=== PATIENT | male | born 1960 | race Caucasian/White ===

== ENCOUNTER → 2016-03-29 | Outpatient (CLI) | payer OTHER ==
[~2016-03-29] MED LIST: ACHD5005 PO; ALPR1TAB2 PO; CARI350T27 PO; CYCL10TA9 PO; OXYC-12 PO; OXYC-465 PO; OXYC1TAB12 PO; SULF-222 PO
--- OUTSIDE RECORDS SUMMARY | 2016-03-29 15:13 | XMS REPORT | Continuity of Care Document ---
Author Author [facility] Organization [facility] Address Unknown Phone Unavailable Care Team Providers Care Character Actress Name Role Phone BURDEN, JOSE Larkin MD PCP Insurance Providers Payer Name Policy Number Subscriber Name Relationship [employer] [id number] [address] Self / Same As Patient Advance Directives Directive Response Recorded Date/Time Advance Directives No 06/13/14 8:31am Health Care Power of Repair Department Manager No 06/13/14 8:31am Organ Donor Yes 06/13/14 8:31am Resuscitation Status Full Code 06/13/14 8:31am Problems No known problems or medical conditions. Medications Medication Dose Route Sig Days/Qty Instructions Order Date Discontinued Date Status Alprazolam 1 Mg PO THREE TIMES A DAY PRN ANXIETY 05/31/13 Active Oxycodone Hcl/Acetaminophen 1 Tab PO EVERY 4HRS PRN PAIN 05/31/13 Discontinued Cyclobenzaprine HCl (Flexeril) 1 Each PO BEDTIME PRN MUSCLE SPASMS 05/02/14 Discontinued Oxycodone Hcl/Acetaminophen 1-2 Each PO Q4-6H PRN For PAIN 40 Qty 06/0203/31/14 Discontinued Oxycodone Hcl/Acetaminophen 1 Tab PO THREE TIMES A DAY 03/31/14 Active Carisoprodol 350 Mg PO BEDTIME PRN MUSCLE SPASMS 05/02/14 Active Acetaminophen/Hydrocodone Bitart (Hydrocodone/APAP 5/325mg) 1-2 Tab PO EVERY 4HRS 40 Qty every 4-6 hours as needed 05/03/14 Active Trimethoprim/Sulfamethoxazole 1 Tab PO TWICE A DAY 06/13/14 Active Social History Social History Problem Response Recorded Date/Time Alcohol Use Denies Use 06/13/2014 8:31am Recreational Drug Use No 06/13/2014 8:31am Recent Foreign Travel No 05/31/2013 8:40pm Recent Infectious Disease Exposure No 06/13/2014 8:24am Hospitalization with Isolation Denies 06/02/2013 10:22pm Smoking Status Never a Smoker 06/13/2014 8:31am Query Response Start Date Stop Date Smoking Status Never a Smoker Hospital Discharge Instructions No hospital discharge instructions. Plan of Care No plan of care. Functional Status No functional status results. Allergies, Adverse Reactions, Alerts Allergen Type Severity Reaction Status Last Updated No Known Drug Allergies Active 05/31/13 Immunizations Name Given Type Tetanus Booster (TDap) Unknown Historical Vital Signs Acute Vital Signs Vital Response Date/Time Temperature (Fahrenheit) 99.5 degrees F (97.6 - 99.5) Temperature (Calculated Celsius) 37.99692 degrees C (36.4 - 37.5) Temperature Source Temporal Pulse Rate (adult) 91 bpm (60 - 90) Respiratory Rate 20 bpm (12 - 24) O2 Sat by Pulse Oximetry 98 % (88 - 100) Blood Pressure 145/109 mm Hg Pain Pain Intensity 9 Height (Feet) 5 feet Height (Inches) 7.00 inches Height (Calculated Centimeters) 170.580002 cm Weight (Pounds) 135 pounds Weight (Ounces) 0.0 oz Weight (Calculated Grams) 55242.971 gm Weight (Calculated Kilograms) 61.101698 kilograms Calculated BMI 21.09 Results Laboratory Results Test Name Result Units Flags Reference Collection Date/Time Result Date/ Time Comments White Blood Count 8.9 10^3/uL 4.3-11.0 06/13/2014 9:05am 06/13/2014 9: 16am Red Blood Count 4.30 10^6/uL L 4.35-5.85 06/13/2014 9:05am 06/13/2014 9: 16am Hemoglobin 12.1 G/DL L 13.3-17.7 06/13/2014 9:0506/13/2014 9:16am Hematocrit 36 % L 40-54 06/13/2014 9:0506/13/2014 9:16am Mean Corpuscular Volume 83 FL 80-99 06/13/2014 9:0506/13/2014 9: 16am Mean Corpuscular Hemoglobin 28 PG 25-34 06/13/2014 9:0506/13/2014 9: 16am Mean Corpuscular Hemoglobin Concent 34 G/DL 32-36 06/13/2014 9:05am 12/2014 9:16am Red Cell Distribution Width 15.5 % H 10.0-14.5 06/13/2014 9:052014 9:16am Platelet Count 350 10^3/uL 130-400 06/13/2014 9:05am 06/13/2014 9:16am Mean Platelet Volume 9.4 FL 7.4-10.4 06/13/2014 9:0506/13/2014 9: 16am Neutrophils (%) (Auto) 70 % 42-75 06/13/2014 9:0506/13/2014 9:16am Lymphocytes (%) (Auto) 20 % 12-44 06/13/2014 9:0506/13/2014 9:16am Monocytes (%) (Auto) 8 % 0-12 06/13/2014 9:0506/13/2014 9:16am Eosinophils (%) (Auto) 2 % 0-10 06/13/2014 9:0506/13/2014 9:16am Basophils (%) (Auto) 0 % 0-10 06/13/2014 9:0506/13/2014 9:16am Neutrophils # (Auto) 6.2 X 10^3 1.8-7.8 06/13/2014 9:0506/13/2014 9: 16am Lymphocytes # (Auto) 1.7 X 10^3 1.0-4.0 06/13/2014 9:0506/13/2014 9: 16am Monocytes # (Auto) 0.7 X 10^3 0.0-1.0 06/13/2014 9:0506/13/2014 9: 16am Eosinophils # (Auto) 0.2 10^3/uL 0.0-0.3 06/13/2014 9:05am 06/13/2014 9 :16am Basophils # (Auto) 0.0 10^3/uL 0.0-0.1 06/13/2014 9:0506/13/2014 9: 16am Erythrocyte Sedimentation Rate 115 MM/HR H 0-30 06/13/2014 9:052014 10:25am Sodium Level 139 MMOL/L 135-145 06/13/2014 9:0506/13/2014 9:33am Potassium Level 4.0 MMOL/L 3.6-5.0 06/13/2014 9:0506/13/2014 9:33am Chloride Level 106 MMOL/L 98-107 06/13/2014 9:0506/13/2014 9:33am Carbon Dioxide Level 21 MMOL/L 21-32 06/13/2014 9:0506/13/2014 9: 33am Blood Urea Nitrogen 15 MG/DL 7-18 06/13/2014 9:0506/13/2014 9:33am Creatinine 0.74 MG/DL 0.60-1.30 06/13/2014 9:0506/13/2014 9:33am BUN/Creatinine Ratio 20 06/13/2014 9:0506/13/2014 9:33am Estimat Glomerular Filtration Rate > 60 06/13/2014 9:052014 9:33am GFR INTERPRETIVE DATA UNITS FOR ESTIMATED GFR (eGFR): mL/min/1.73 M2 REFERENCE RANGE FOR ESTIMATED GFR (eGFR) eGFR NORMAL eGFR >60 MODERATELY DECREASED eGFR 30-59 SEVERLY DECREASED eGFR 15-29 KIDNEY FAILURE <15 (OR DIALYSIS) Glucose Level 105 MG/DL 70-105 06/13/2014 9:0506/13/2014 9:33am Calcium Level 9.1 MG/DL 8.5-10.1 06/13/2014 9:0506/13/2014 9:33am Total Bilirubin 0.2 MG/DL 0.1-1.0 06/13/2014 9:05am 06/13/2014 9:33am Alkaline Phosphatase 299 U/L H 40-136 06/13/2014 9:0506/13/2014 9: 33am Aspartate Amino Transf (AST/SGOT) 28 U/L 5-34 06/13/2014 9:05am 2014 9:33am Alanine Aminotransferase (ALT/SGPT) 49 U/L 0-55 06/13/2014 9:05am 06/13 9:33am Total Protein 7.6 G/DL 6.4-8.2 06/13/2014 9:05am 06/13/2014 9:33am Albumin 4.2 G/DL 3.2-4.5 06/13/2014 9:05am 06/13/2014 9:33am Procedures No known history of procedures. Encounters Encounter Location Date/Time Departed Emergency Room [facility] 06/13/14 8:21am Registered Recurring [facility] 06/12/14 8:30am Recent Diagnosis
--- NOTE | 2016-03-29 16:29 | Diagnostic Imaging Report ---
PROCEDURE: MRI lumbar spine. TECHNIQUE: Multiplanar, multisequence MRI of the lumbar spine was performed without contrast. INDICATION: Back pain. FINDINGS: There are no previous MRI examinations available for comparison. The previous plain film examination of the lumbar spine performed on 01/15/2013 did note pedicle screws in place on the right at L4, L5, and S1. There also appear to be interbody devices at L4-5 and L5-S1. On this study, the orthopedic hardware is again identified and seems to be in good position. There is degenerative disc and bony disease at L4-5 and L5-S1, but there is no sign of spinal stenosis at either of these levels. There does not appear to be any significant narrowing of the neural foramen either. There is desiccation of the disc at the other levels of the lumbar spine, but the disc spaces are fairly well maintained. The thecal sac is relatively generous, and there is no evidence for spinal stenosis or nerve root encroachment at any level. There is no abnormal signal arising from the cord or the vertebral bodies to indicate an acute abnormality. There is no sign of a paraspinal mass. IMPRESSION: 1. The postsurgical changes at L4, L5, and S1 seen previously appear stable. There is no evidence for recurrent stenosis or nerve root encroachment at these levels. 2. There is no other evidence for spinal stenosis or nerve root encroachment either. 3. There is no acute bony abnormality identified, and there is no sign of a cord lesion. Dictated by: Dictated on workstation # [id number]
== END ==
LOC: RAD 15:09
PROVIDERS: ATTEND Nurse Practitioner Family
DX: M54.41 Lumbago with sciatica, right side (principal)
CPT/HCPCS: 72148

== ENCOUNTER 2017-11-10 17:46 | Emergency (ER) | payer SELFPAY ==
[~2017-11-10] VITALS: Ht 170.2 cm; Wt 61.2 kg
[2017-11-10] MEDS ORDERED: fentaNYL INJECTION 100 MCG/2 ML AMP IVP ONE (18:30)
--- NOTE | 2017-11-10 18:38 | ED General ---
General Chief Complaint: Bite-Animal/Human/Insect Stated Complaint: SPIDER BITE Nursing Triage Note: SPIDER BITES X2, 2 DAYS AGO. SWELLING AND PUSS PRESENT. Nursing Sepsis Screen: No Definite Risk Source of Information: Patient Exam Limitations: No Limitations History of Present Illness Date Seen by Provider: Nov 10, 2017 Time Seen by Provider: 18:35 Initial Comments To ER per private vehicle with reports of suspected spider bite to the right arm first noticed 2 days ago. He states that he's been building a fence helping a rivas. About 2 weeks ago while stretching out the fence wire the wire snapped and lacerated the volar aspect of the left and right wrist. The rivas in the [place] have been bandaging these at their home and told him he did not need to be seen at a physician's office. 2 days ago he noticed 2 bites to the dorsum of the right hand and wrist and suspects these to be spider bites though he did not actually see a spider bite him. He does report chills. Believes himself to be otherwise healthy. Timing/Duration: 2-3 Days Severity: Moderate Associated Systoms: Fever/Chills Allergies and Home Medications Allergies Coded Allergies: No Known Drug Allergies (Unverified , 11/10/17) Home Medications Alprazolam 1 Mg Tablet, 1 MG PO TID PRN for ANXIETY, (Reported) Carisoprodol 350 Mg Tablet, 350 MG PO HS PRN for MUSCLE SPASMS, (Reported) Cephalexin 500 Mg Capsule, 500 MG PO TID Prescribed by: CAL BARNHART on 11/10/171940 Hydrocodone Bit/Acetaminophen Y Tab, 1-2 TAB PO Q4H every 4-6 hours as needed Prescribed by: NAM ORTA on 05/03/14 1000 Hydrocodone/Acetaminophen 1 Each Tablet, 1 EACH PO Q4H PRN for PAIN-MODERATE Do not fill unless Keflex and Bactrim are also filled Prescribed by: CAL BARNHART on 11/10/171940 Oxycodone Hcl/Acetaminophen 1 Each Tablet, 1 TAB PO TID, (Reported) Sulfamethoxazole/Trimethoprim 1 Each Tablet, 1 EACH PO BID Prescribed by: CAL BARNHART on 11/10/171940 Trimethoprim/Sulfamethoxazole 1 Ea Tablet, 1 TAB PO BID, (Reported) Patient Home Medication List Home Medication List Reviewed: Yes Review of Systems Review of Systems Constitutional: see HPI, chills EENTM: see HPI Respiratory: no symptoms reported Cardiovascular: no symptoms reported Genitourinary: no symptoms reported Musculoskeletal: no symptoms reported Skin: see HPI Psychiatric/Neurological: No Symptoms Reported Hematologic/Lymphatic: No Symptoms Reported Immunological/Allergic: no symptoms reported Past Oqpktgr-Cslmzp-Bfeeqe Hx Patient Social History Alcohol Use: Denies Use Recreational Drug Use: No Smoking Status: Never a Smoker Recent Foreign Travel: No Contact w/Someone Who Travel: No Recent Infectious Disease Expo: No Recent Hopitalizations: No Physical Abuse: No Sexual Abuse: No Immunizations Up To Date Tetanus Booster (TDap): Unknown Seasonal Allergies Seasonal Allergies: No Past Medical History Surgeries: Yes (RIGHT FEMUR FX, RIGHT TIBIA FX, L3-5 SPINAL FUSION) Respiratory: No Cardiac: No Neurological: No Reproductive Disorders: No Genitourinary: No Gastrointestinal: No Musculoskeletal: Yes (BACK PAIN; HX LUMBAR FUSION) Chronic Back Pain, Fractures Endocrine: No HEENT: No Cancer: No Psychosocial: Yes Anxiety Integumentary: No Blood Disorders: No Family Medical History Cancer 03 FATHER (LUNG WITH METS TO BRAIN) 09 SISTER (CERVICAL) Physical Exam Vital Signs Vital Signs - First Documented 11/10/17 20:30 O2 Delivery Room Air Capillary Refill : Less Than 3 Seconds Height, Weight, BMI Height: 5'7.00" Weight: 135lbs. 0.0oz. 61.805962tv; BMI Method:Stated General Appearance: No Apparent Distress, WD/WN Eyes: Bilateral Eye Normal Inspection, Bilateral Eye PERRL, Bilateral Eye EOMI HEENT: PERRL/EOMI, TMs Normal Neck: Full Range of Motion, Normal Inspection Respiratory: No Accessory Muscle Use, No Respiratory Distress Cardiovascular: Regular Rate, Rhythm, Normal Peripheral Pulses Gastrointestinal: Non Tender, Soft Extremity: Normal Capillary Refill, Normal Inspection, Other (. There is a large 5 semi-laceration to the volar aspect of each wrist. On the left this is a few millimeters deep with a whitish fibrinous base. There is about 3 cm of surrounding erythema and serous drainage. The right wrist/forearm looks worse. As a 5 semi-laceration to the volar aspect of the wrist. There is a whitish fibrinous base. There is erythema induration and cellulitis type changes of the arm all the way up to the elbow. He does have a draining lesion to the dorsum of the right distal forearm and the lateral right hand which she believes are spider bites. He is able to flex his fingers individually but has trouble flexing the wrist due to swelling and tight sensation in the forearms.) Neurologic/Psychiatric: Alert, Oriented x3, No Motor/Sensory Deficits Focused Exam Lactate Level Lactic Acid Level Progress/Results/Core Measures Suspected Sepsis Recent Fever Within 48 Hours: No Infection Criteria Present: None New/Unexplained Altered Menta: No Sepsis Screen: No Definite Risk SIRS Temperature:99.4 Pulse: 86 Respiratory Rate: 20 Blood Pressure 136 /88 Mean: 104 Results/Orders Lab Results My Orders Medications Given in ED Vital Signs/I&O Capillary Refill : Less Than 3 Seconds Blood Pressure Mean: 104 Departure Communication (Admissions) Spoke with Dr. Frias on-call for [facility]. We'll give a dose of Rocephin here and discharged home on Keflex and Bactrim follow-up at [facility] walk-in clinic on Monday11/12/17. Impression Primary Impression: Cellulitis of right forearm Additional Impression: infected laceration bilateral wrist Disposition: 01 HOME, SELF-CARE Condition: Stable Departure-Patient Inst. Decision time for Depature: 19:39 Referrals: [facility] (PCP/Family) Primary Care Physician Patient Instructions: Cellulitis (Skin Infection), Adult (DC) Add. Discharge Instructions: 1. Return to ER for any concerns 2. Follow-up with your doctor next week 3. It was accessed directed. Return to ER for any fevers chills or worsening symptoms. Follow-up with [facility] walk-in clinic on Monday. All discharge instructions reviewed with patient and/or family. Voiced understanding. Scripts Hydrocodone/Acetaminophen ([place] 5-325 Tablet) 1 Each Tablet 1 EACH PO Q4H PRN for PAIN-MODERATE, #10 TAB Do not fill unless Keflex and Bactrim are also filled Prov: CAL BARNHART APRN 11/10/17 Cephalexin (Keflex) 500 Mg Capsule 500 MG PO TID, #21 CAP Prov: CAL BARNHART APRN 11/10/17 Sulfamethoxazole/Trimethoprim (Bactrim Ds Tablet) 1 Each Tablet 1 EACH PO BID, #14 TAB Prov: CAL BARNHART APRN 11/10/17 CAL BARNHART APRN Nov 10, 2017 18:38
[2017-11-10 18:42] LABS: BASOPHILS % (AUTO) 0 % (0-10); EOSINOPHILS # (AUTO) 0.1 10^3/uL (0.0-0.3); EOSINOPHILS % (AUTO) 1 % (0-10); HEMATOCRIT 34 % (40-54); HEMOGLOBIN 11.8 G/DL (13.3-17.7); LYMPHOCYTES % (AUTO) 11 % (12-44); MEAN CORPUSCULAR HEMOGLOBIN 30 PG (25-34); MEAN CORPUSCULAR HGB CONC 35 G/DL (32-36); MEAN CORPUSCULAR VOLUME 86 FL (80-99); MEAN PLATELET VOLUME 9.2 FL (7.4-10.4); MONOCYTES # (AUTO) 0.7 X 10^3 (0.0-1.0); MONOCYTES % (AUTO) 8 % (0-12); NEUTROPHILS # (AUTO) 7.2 X 10^3 (1.8-7.8); NEUTROPHILS % (AUTO) 80 % (42-75); PLATELET COUNT 287 10^3/uL (130-400); RED BLOOD COUNT 3.93 10^6/uL (4.35-5.85); RED CELL DISTRIBUTION WIDTH 13.8 % (10.0-14.5); WHITE BLOOD COUNT 8.9 10^3/uL (4.3-11.0)
[2017-11-10 19:04] LABS: ALANINE AMINOTRANSFERASE 19 U/L (0-55); ALBUMIN 4.2 GM/DL (3.2-4.5); ALKALINE PHOSPHATASE 76 U/L (40-136); BILIRUBIN,TOTAL 0.6 MG/DL (0.1-1.0); BUN/CREATININE RATIO 21; CARBON DIOXIDE 23 MMOL/L (21-32); CHLORIDE 101 MMOL/L (98-107); CREATININE SERUM 0.89 MG/DL (0.60-1.30); GFR ESTIMATED > 60; GLUCOSE 132 MG/DL (70-105); POTASSIUM 3.7 MMOL/L (3.6-5.0); SODIUM 135 MMOL/L (135-145); TOTAL PROTEIN 6.9 GM/DL (6.4-8.2)
[2017-11-10] MEDS ORDERED: HYDR-4226 PO (19:41)
[2017-11-10] MEDS ORDERED: SULF1TAB35 PO (19:41)
[2017-11-10] MEDS ORDERED: CEPH-507 PO (19:41)
[2017-11-10] MEDS ORDERED: TRIM/SULFAMETH 160/800 (SEPTRA DS) TAB PO ONE (19:45)
[2017-11-10] MEDS ORDERED: HYDROcodone/APAP 5 MG/325 MG (LORTAB) TAB PO ONE (19:45)
[2017-11-10] MEDS ORDERED: cefTRIAXone FOR IV USE 1,000 MG in NS (IVPB) 50 ML IV ONE (19:45)
[2017-11-10 20:30] VITALS: BP 114/67
== END 2017-11-10 20:29 | disposition home or self-care (01) ==
LOC: EDUNIT# 17:46 → ER 17:47
DX: S61.511A Laceration without foreign body of right wrist, initial encounter (principal); L03.113 Cellulitis of right upper limb; F41.9 Anxiety disorder, unspecified; Z98.1 Arthrodesis status; Z80.1 Family history of malignant neoplasm of trachea, bronchus and lung; Z80.8 Family history of malignant neoplasm of other organs or systems; X58.XXXA Exposure to other specified factors, initial encounter
CPT/HCPCS: 36415; 80053; 83605; 85025; 87040; 87070; 87077; 87186; 87205; 96374; 96375

== ENCOUNTER 2020-02-06 11:19 | Emergency (ER) | payer MEDICAID, MEDICARE ==
[~2020-02-06] VITALS: Ht 170 cm; Wt 70.4 kg
[~2020-02-06 11:19] MED LIST changes: +CEPH-507 PO; +HYDR-4226 PO; +SULF1TAB35 PO
--- NOTE | 2020-02-06 12:11 | NUR ---
HE WILL KEEP GIRLFRIEND UPDATED
[2020-02-06] MEDS ORDERED: HYDROcodone/APAP 5 MG/325 MG (LORTAB) TAB PO ONE (12:15)
--- NOTE | 2020-02-06 12:25 | ED Upper Extremity ---
General Chief Complaint: Laceration Stated Complaint: L RING FINGER SMASHED Nursing Triage Note: AMB TO ROOM REPORTS YESTERDAY AT 0930 WAS OPENING A WINDOW AND IT FELL ON L 4TH FINGER LACERATION TO SIDE OF FINGER Nursing Sepsis Screen: No Definite Risk Source: patient Exam Limitations: no limitations History of Present Illness Date Seen by Provider: Feb 06, 2020 Time Seen by Provider: 12:15 Initial Comments To ER with reports of a window falling on his left ring finger and subsequently crushing it sometime yesterday while he was putting up [employer] lights. Comes in today for ongoing pain. Onset: just prior to arrival Severity: moderate Pain/Injury Location: left 4th finger Method of Injury: fell Modifying Factors: Worse With Movement Allergies and Home Medications Allergies Coded Allergies: No Known Drug Allergies (Unverified , 11/10/17) Home Medications Alprazolam 1 Mg Tablet, 1 MG PO TID PRN for ANXIETY, (Reported) Carisoprodol 350 Mg Tablet, 350 MG PO HS PRN for MUSCLE SPASMS, (Reported) Cephalexin 500 Mg Capsule, 500 MG PO TID Prescribed by: CAL BARNHART on 11/10/171940 Cephalexin 500 Mg Capsule, 500 MG PO TID Prescribed by: CAL BARNHART on 02/06/20 122 Hydrocodone Bit/Acetaminophen Y Tab, 1-2 TAB PO Q4H every 4-6 hours as needed Prescribed by: NAM ORTA on 05/03/14 1000 Hydrocodone/Acetaminophen 1 Each Tablet, 1 EACH PO Q4H PRN for PAIN-MODERATE Do not fill unless Keflex and Bactrim are also filled Prescribed by: CAL BARNHART on 11/10/171940 Hydrocodone/Acetaminophen 1 Each Tablet, 1 EACH PO Q4H PRN for PAIN-MODERATE (5- 7) Prescribed by: CAL BARNHART on 02/06/20 1226 Oxycodone Hcl/Acetaminophen 1 Each Tablet, 1 TAB PO TID, (Reported) Sulfamethoxazole/Trimethoprim 1 Each Tablet, 1 EACH PO BID Prescribed by: CAL BARNHART on 11/10/171940 Trimethoprim/Sulfamethoxazole 1 Ea Tablet, 1 TAB PO BID, (Reported) Patient Home Medication List Home Medication List Reviewed: Yes Review of Systems Constitutional: see HPI EENTM: see HPI Respiratory: no symptoms reported Cardiovascular: no symptoms reported Genitourinary: no symptoms reported Musculoskeletal: no symptoms reported Skin: no symptoms reported Psychiatric/Neurological: No Symptoms Reported Past Aoysypa-Myvpfy-Nuculn Hx Patient Social History Alcohol Use: Denies Use Recreational Drug Use: No Recent Foreign Travel: No Contact w/Someone Who Travel: No Recent Infectious Disease Expo: No Recent Hopitalizations: No Immunizations Up To Date Tetanus Booster (TDap): Unknown Seasonal Allergies Seasonal Allergies: No Past Medical History Surgeries: Yes (RIGHT FEMUR FX, RIGHT TIBIA FX, L3-5 SPINAL FUSION) Respiratory: No Cardiac: No Neurological: No Reproductive Disorders: No Genitourinary: No Gastrointestinal: No Musculoskeletal: Yes (BACK PAIN; HX LUMBAR FUSION) Chronic Back Pain, Fractures Endocrine: No HEENT: No Cancer: No Psychosocial: Yes Anxiety Integumentary: No Blood Disorders: No Family Medical History Cancer 03 FATHER (LUNG WITH METS TO BRAIN) 09 SISTER (CERVICAL) Physical Exam Vital Signs Vital Signs - First Documented 02/06/20 11:50 Temp 35.8 Pulse 88 Resp 18 B/P (MAP) 155/ Pulse Ox 98 O2 Delivery Room Air Capillary Refill : Less Than 3 Seconds Height, Weight, BMI Height: 5'7.00" Weight: 135lbs. 0.0oz. 61.427546be; 24.00 BMI Method:Stated General Appearance: WD/WN, no apparent distress Respiratory: no respiratory distress, no accessory muscle use Gastrointestinal: normal bowel sounds, non tender Shoulder: normal inspection, non-tender Elbow/Forearm: normal inspection, non-tender Wrist: Yes normal inspection, Yes non-tender Hand: Left, soft tissue tenderness (There is an apparent crush injury with exposed subcutaneous tissue at the lateral sides bilaterally of the distal aspe ct of the ring finger without significant subungual hematoma. No exposed bone. Distal tip does have capillary refill.) Neurologic/Tendon: normal sensation, normal motor functions Neurologic/Psychiatric: alert, normal mood/affect, oriented x 3 Skin: normal color, warm/dry Progress/Results/Core Measures Results/Orders My Orders Orders - CAL BARNHART APRN Hydrocodone/Apap 5/325 Tablet (Lortab 5 (02/06/20 12:15) Hand, Left, 3 Views (02/06/20 12:01) Cephalexin Capsule (Keflex Capsule) (02/06/20 12:30) Dipht,Pertuss(Acell),Tet Adult (Boostrix (02/06/20 12:30) Bupivacaine 0.5% Injection (Sensorcaine (02/06/20 12:45) Bupivacaine 0.5% Injection (Sensorcaine (02/06/20 12:32) Medications Given in ED Current Medications Medications Dose Ordered Sig/Elsie Route Start Time Stop Time Status Last Admin Dose Admin Acetaminophen/ Hydrocodone Bitart 1 tab ONCE ONCE PO 02/06/20 12:15 02/06/20 12:16 DC 02/06/20 12:15 1 TAB Cephalexin HCl 500 mg ONCE ONCE PO 02/06/20 12:30 02/06/20 12:31 DC 02/06/20 12:38 500 MG Diphtheria/ Tetanus/Acell Pertussis 0.5 ml ONCE ONCE IM 02/06/20 12:30 02/06/20 12:31 DC 02/06/20 12:40 0.5 ML Vital Signs/I&O 02/06/20 11:50 Temp 35.8 Pulse 88 Resp 18 B/P (MAP) 155/ Pulse Ox 98 O2 Delivery Room Air Departure Communication (Admissions) Patient was given antibiotic plus pain medicine plus a digital block using 4 mL of bupivacaine 0.5% without epinephrine. Fingertip was then cleaned, covered with Xeroform then tube gauze then a splint. Given follow-up instructions for Dr. Holloway Impression Primary Impression: Crush injury to finger Qualified Codes: S67.10XA - Crushing injury of unspecified finger(s), initial encounter Disposition: 01 HOME, SELF-CARE Condition: Stable Departure-Patient Inst. Decision time for Depature: 12:17 Referrals: LATOSHA HOLLOWAY,LOCAL PHYSICIAN (PCP) Primary Care Physician Patient Instructions: Common Finger Injuries Add. Discharge Instructions: 1. Leave the dressing on at all times for about 48 hours. After this time you can take it off and replaced with a simple Band-Aid. Take the antibiotics and pain medication as directed. Follow-up with Dr. Holloway from hand surgery. Call his office tomorrow to make an appointment to be seen within the next 2 weeks. Return to ER for any worsening. Emergency department focuses on treating and ruling out life-threatening diseases. Whenever possible, a diagnosis is given. However, most patients are given an impression based on thei r history, physical exam, and workup during your brief time in the ER. Information about probable diagnosis and other educational material has been provided. Please take the time to read and understand this information. It is very important that you follow up with a physician as discussed during the visit today. Failure to adhere to your follow-up instructions may lead to severe disability, injury, or so please make sure to keep your appointments or obtain one as requested. Scripts Hydrocodone/Acetaminophen (Hydrocodone-Acetamin 5-325 mg) 1 Each Tablet 1 EACH PO Q4H PRN for PAIN-MODERATE (5-7), #14 TAB Prov: CAL BARNHART APRN 02/06/20 Cephalexin (Keflex) 500 Mg Capsule 500 MG PO TID, #21 CAP Prov: CAL BARNHART APRN 02/06/20 CAL BARNHART APRN Feb 06, 2020 12:25
[2020-02-06] MEDS ORDERED: ACHD5005 PO (12:26)
[2020-02-06] MEDS ORDERED: CEPH-507 PO (12:26)
[2020-02-06] MEDS ORDERED: TETANUS,DIPTH,PERTUSS P/F (BOOSTRIX) 0.5 ML VIAL IM ONE (12:30)
[2020-02-06] MEDS ORDERED: CEPHALEXIN 250 MG (KEFLEX) CAP PO ONE (12:30)
--- NOTE | 2020-02-06 12:31 | Diagnostic Imaging Report ---
HISTORY: Trauma to the left fourth finger. COMPARISON: None. TECHNIQUE: Three views of the left hand. FINDINGS: There is a comminuted fracture of the left fourth finger distal phalangeal tuft with minimal displacement. There are punctate hyperdensities in the soft tissues, some of which may represent bony fragments, but also concerning for debris and small foreign bodies. There is soft tissue laceration at the tip of the left fourth finger. There are mild degenerative changes of the basal joints of the thumb. No cortical erosions are seen. Alignment otherwise appears normal. IMPRESSION: 1. Comminuted, minimally displaced fracture of the left fourth finger distal phalangeal tuft. 2. Laceration of the distal left fourth finger, with punctate hyperdensities which may represent bony fragments, overlying debris, and/or small foreign bodies. Dictated by: Dictated on workstation # [id number]
[2020-02-06] MEDS ORDERED: BUPIVACAINE 0.5% 30 ML (SENSORCAINE) VIAL ONE (12:32)
[2020-02-06] MEDS ORDERED: BUPIVACAINE 0.5% 30 ML (SENSORCAINE) VIAL INJ ONE (12:45)
--- NOTE | 2020-02-06 12:45 | NUR ---
DRESSING BY Nika BARNHART APRN
[2020-02-06 12:48] VITALS: BP 155/88
== END 2020-02-06 12:50 | disposition home or self-care (01) ==
LOC: EDUNIT# 11:19 → ER 11:21
DX: S67.195A Crushing injury of left ring finger, initial encounter (principal); G89.29 Other chronic pain; M54.9 Dorsalgia, unspecified; F41.9 Anxiety disorder, unspecified; Z80.49 Family history of malignant neoplasm of other genital organs; Z80.1 Family history of malignant neoplasm of trachea, bronchus and lung; Z80.8 Family history of malignant neoplasm of other organs or systems; Z23 Encounter for immunization; Z79.891 Long term (current) use of opiate analgesic; W23.1XXA Caught, crushed, jammed, or pinched between stationary objects, initial encounter
CPT/HCPCS: 29130; 73130; 90715